=== PATIENT | female | born 1970 | race Two or more races ===

== ENCOUNTER 2023-10-24 09:27 | Emergency (ER) | payer BC ==
[~2023-10-24] VITALS: Ht 154.9 cm; Wt 77.1 kg
[2023-10-24] MEDS ORDERED: AMLODIPINE BESYL5 MG (10:01)
[2023-10-24] MEDS ORDERED: METHYLPREDNISOLONE SOD SUCC 125 MG VIAL IM STA (10:07)
[2023-10-24] MEDS ORDERED: METHYLPREDNISOLONE SOD SUCC 40 MG VIAL ONE (10:17)
== END 2023-10-24 10:24 | disposition home or self-care (01) ==
LOC: ER 09:29
DX: L55.9 Sunburn, unspecified (principal); Z88.2 Allergy status to sulfonamides